=== PATIENT | female | born 1935 | race American Indian/Alaskan Native ===

== ENCOUNTER 2019-07-05 06:05 | Observation (INO) | payer MEDICARE ==
--- NOTE | 2019-07-05 06:46 | XRay Report ---
CHEST 1 VIEW INDICATION: Chest Pain. COMPARISON: None FINDINGS: Support devices: None. Heart: Within normal limits. Lungs/Pleura: No acute air space or interstitial disease. Additional findings: None. IMPRESSION: 1. No acute findings. Signer Name: Bimal Paz MD Signed: 07/05/2019 6:42 AM Workstation Name: [id number]
--- NOTE | 2019-07-05 07:21 | Emergency Department Report ---
ED Chest Pain HPI - General Chief Complaint: Chest Pain Stated Complaint: LEFT ARM AND CHEST PAIN Time Seen by Provider: 07/05/19 07:18 Source: patient Mode of arrival: Ambulatory Limitations: No Limitations - History of Present Illness Initial Comments: This is a very pleasant and largely functional 84-year-old female who has no known cardiac history. She was awake at 5 AM when she began to have an aching in her substernal region which radiated to her left arm and causes numbness. He states that she has had chest pain before but not recently. She has [place] some sort of cardiac [place] She has known known coronary artery disease. She denies significant sweating, nausea, shortness of breath. He states her chest aching has resolved but her arm feels diffusely aching. MD Complaint: chest pain -: hour(s) Onset: during rest Pain Location: substernal Pain Radiation: LUE Severity: moderate Quality: other (aching) Consistency: now resolved (chest pain resolved arm still aching mildly) Improves With: nothing Worsens With: nothing re: denies: nausea, vomting, diaphoresis, dyspnea, sense of impending doom Other Symptoms: denies: cough, fever, syncope Treatments Prior to Arrival: none Aspirin use within the Past 7 Days: (1) Yes - Related Data Home Medications Medication Instructions Recorded Confirmed Last Taken Aspirin [Baby Aspirin] 81 mg PO QDAY 04/29/13 07/05/19 07/04/19 Losartan [Cozaar] 100 mg PO QDAY 04/29/13 07/05/19 07/04/19 Multivit with Calcium,Iron,Min 1 each PO DAILY 07/05/19 07/05/19 07/04/19 [Multiple Vitamins For Women] Allergies Allergy/AdvReac Type Severity Reaction Status Date / Time iodine Allergy Hives Verified 04/29/13 16:05 Heart Score - HEART Score History: Highly suspicious EKG: Non-specific Age: > 65 Risk factors: > 3 risk factors or hx of atherosclerotic disease Troponin: < normal limit HEART Score: 7 - Critical Actions Critical Actions: >7 pts:50-65% risk of adverse cardiac event. Early invasive measures ED Review of Systems ROS: Stated complaint: LEFT ARM AND CHEST PAIN Other details as noted in HPI Constitutional: denies: chills, fever Eyes: denies: eye pain, eye discharge, vision change ENT: denies: ear pain, throat pain Respiratory: denies: cough, shortness of breath, wheezing Cardiovascular: chest pain. denies: palpitations Endocrine: no symptoms reported Gastrointestinal: denies: abdominal pain, nausea, diarrhea Genitourinary: denies: urgency, dysuria, discharge Musculoskeletal: denies: back pain, joint swelling, arthralgia Skin: denies: rash, lesions Neurological: denies: headache, weakness, paresthesias Psychiatric: denies: anxiety, depression Hematological/Lymphatic: denies: easy bleeding, easy bruising ED Past Medical Hx - Past Medical History Previous Medical History?: Yes Hx Hypertension: Yes Hx Congestive Heart Failure: Yes Hx Pulmonary Embolism: Yes (2010) Hx Arthritis: Yes Hx Kidney Stones: Yes Hx Dementia: Yes Additional medical history: MVP - Surgical History Past Surgical History?: No - Social History Smoking Status: Never Smoker Substance Use Type: None - Medications Home Medications: Home Medications Medication Instructions Recorded Confirmed Last Taken Type Aspirin [Baby Aspirin] 81 mg PO QDAY 04/29/13 07/05/19 07/04/19 History Losartan [Cozaar] 100 mg PO QDAY 04/29/13 07/05/19 07/04/19 History Multivit with Calcium,Iron,Min 1 each PO DAILY 07/05/19 07/05/19 07/04/19 History [Multiple Vitamins For Women] ED Physical Exam - General Limitations: No Limitations General appearance: alert, in no apparent distress - Head Head exam: Present: atraumatic, normocephalic - Eye Eye exam: Present: normal appearance. Absent: scleral icterus - ENT ENT exam: Present: mucous membranes moist - Neck Neck exam: Present: normal inspection. Absent: tenderness, meningismus - Respiratory Respiratory exam: Present: normal lung sounds bilaterally. Absent: respiratory distress - Cardiovascular Cardiovascular Exam: Present: regular rate, normal rhythm. Absent: systolic murmur, diastolic murmur, rubs, gallop - GI/Abdominal GI/Abdominal exam: Present: soft, normal bowel sounds. Absent: distended, tenderness, guarding, rebound, rigid - Extremities Exam Extremities exam: Present: normal inspection, full ROM, normal capillary refill. Absent: tenderness, pedal edema, joint swelling, calf tenderness, other - Back Exam Back exam: Present: normal inspection - Neurological Exam Neurological exam: Present: alert, oriented X3, CN II-XII intact. Absent: motor sensory deficit - Psychiatric Psychiatric exam: Present: normal affect, normal mood - Skin Skin exam: Present: warm, dry, intact, normal color. Absent: rash ED Course Vital Signs 07/05/19 07/05/19 07/05/19 06:17 07:00 08:00 Temperature 98.3 F Pulse Rate 82 62 62 Respiratory 18 18 13 Rate Blood Pressure 174/91 138/67 132/71 O2 Sat by Pulse 99 97 99 Oximetry 07/05/19 07/05/19 07/05/19 09:01 10:00 11:00 Temperature Pulse Rate 58 L 59 L 65 Respiratory 17 16 14 Rate Blood Pressure 118/61 126/70 113/66 O2 Sat by Pulse 96 99 99 Oximetry - Reevaluation(s) Reevaluation #1: I was informed if the patient was admitted that she had a contrast allergy. I ordered a nuclear medicine study. 07/05/19 15:31 ED Medical Decision Making - Lab Data Result diagrams: 07/05/19 07:45 07/05/19 07:45 Laboratory Results - last 24 hr 07/05/19 07/05/19 07/05/19 07:45 07:45 07:45 WBC 5.6 RBC 3.51 L Hgb 11.7 Hct 33.5 MCV 95 MCH 33 H MCHC 35 H RDW 13.1 L Plt Count 188 Lymph % (Auto) 25.7 [place] % (Auto) 7.5 H Eos % (Auto) 7.1 H Baso % (Auto) 0.7 Lymph # 1.4 [place] # 0.4 Eos # 0.4 Baso # 0.0 Seg Neutrophils % 59.0 Seg Neutrophils # 3.3 PT 13.3 INR 1.00 APTT 25.5 Sodium 142 Potassium 4.1 Chloride 104.7 Carbon Dioxide 22 Anion Gap 19 BUN 23 H Creatinine 0.7 Estimated GFR > 60 BUN/Creatinine Ratio 33 Glucose 107 H Calcium 9.6 Total Bilirubin 0.30 Direct Bilirubin < 0.2 AST 16 ALT 6 L Alkaline Phosphatase 55 Total Creatine Kinase 95 CK-MB (CK-2) 2.5 CK-MB (CK-2) Rel Index 2.6 Troponin T < 0.010 NT-Pro-B Natriuret Pep 130.2 Total Protein 6.6 Albumin 4.0 Albumin/Globulin Ratio 1.5 - EKG Data -: EKG Interpreted by Me EKG shows normal: sinus rhythm, axis, intervals, QRS complexes, ST-T waves Rate: normal - EKG Data Interpretation: no acute changes - Radiology Data Radiology results: report reviewed Critical care attestation.: If time is entered above; I have spent that time in minutes in the direct care of this critically ill patient, excluding procedure time. ED Disposition Clinical Impression: Elevated d-dimer Chest pain Qualifiers: Chest pain type: unspecified Qualified Code(s): R07.9 - Chest pain, unspecified Disposition: OP ADMIT IP TO THIS HOSP Is pt being admited?: Yes Does the pt Need Aspirin: Yes Condition: Stable Time of Disposition: 09:13
[2019-07-05 07:56] LABS: Basophils % (Auto) 0.7 % (0.0-1.8); Eosinophils # (Auto) 0.4 K/mm3 (0.0-0.4); Eosinophils % (Auto) 7.1 % (0.0-4.3); Hematocrit 33.5 % (30.3-42.9); Hemoglobin 11.7 gm/dl (10.1-14.3); Lymphocytes # (Auto) 1.4 K/mm3 (1.2-5.4); Lymphocytes % (Auto) 25.7 % (13.4-35.0); Mean Corpuscular HGB Conc 35 % (30-34); Mean Corpuscular Volume 95 fl (79-97); Monocytes # (Auto) 0.4 K/mm3 (0.0-0.8); Monocytes % (Auto) 7.5 % (0.0-7.3); Platelet Count 188 K/mm3 (140-440); Red Blood Count 3.51 M/mm3 (3.65-5.03); Red Cell Distribution Width 13.1 % (13.2-15.2)
[2019-07-05 08:07] LABS: Partial Thromboplastin Time 25.5 Sec. (24.2-36.6)
[2019-07-05 08:18] LABS: Creatine Kinase MB 2.5 ng/mL (0.0-4.0)
[2019-07-05 08:20] LABS: Alanine Aminotransferase 6 units/L (7-56); BUN/Creatinine Ratio 33; Blood Urea Nitrogen 23 mg/dL (7-17); Calcium 9.6 mg/dL (8.4-10.2); Hemolysis Index 4
[2019-07-05 08:22] LABS: Bilirubin,Direct < 0.2 mg/dL (0-0.2)
[2019-07-05] MEDS ORDERED: diphenhydrAMINE 50 MG/ML VIAL IV ONE (11:27)
[2019-07-05] MEDS ORDERED: HYDROCORTISONE SOD SUCC 100 MG/2 ML VIAL IV ONE (11:27)
[2019-07-05] MEDS ORDERED: ASPIRIN 325 MG TAB ONE (11:40)
[2019-07-05] MEDS: ASPIRIN 325 MG TAB PO SCH ×3 (11:45→21:19)
--- NOTE | 2019-07-05 15:41 | Nuclear Medicine Report ---
Nuclear medicine pulmonary VQ scan INDICATION: Fever onset chest pain with dyspnea with elevated d-dimer TECHNIQUE: A total of 24.0 mCi is interval 33 gas was inhaled and 5.1 mCi of technetium 99 MAA inject ed IV per protocol COMPARISON: Chest radiograph performed today FINDINGS: Normal wash-in and washout of xenon radiotracer. There is a matched defect identified invol ving the left lower lung. No mismatch perfusion abnormality identified. IMPRESSION: Low probability for PTE. Signer Name: Alex Rose MD Signed: 07/05/2019 3:37 PM Workstation Name: [id number]
[2019-07-05] MEDS ORDERED: ACETAMINOPHEN 325 MG TAB PO PRN (21:04)
[2019-07-05] MEDS ORDERED: HYDROmorphone 1 MG/1 ML INJ IV PRN (21:04)
[2019-07-05] MEDS ORDERED: oxyCODONE /ACETAMINOPHEN 5-325MG TAB PO PRN (21:04)
[2019-07-05] MEDS ORDERED: ONDANSETRON 4 MG/2 ML INJ IV PRN (21:04)
[2019-07-05] MEDS ORDERED: NON-FORMULARY EACH (Losartan [Cozaar] 100 MG) PO SCH (21:15)
[2019-07-05] MEDS: LOSARTAN 50 MG TAB PO SCH (21:22)
[2019-07-05] MEDS: FAMOTIDINE 20 MG TAB PO SCH (21:22)
[2019-07-06 06:10] LABS: Alanine Aminotransferase 6 units/L (7-56); Albumin 3.8 g/dL (3.9-5); BUN/Creatinine Ratio 31; Blood Urea Nitrogen 22 mg/dL (7-17); Calcium 9.4 mg/dL (8.4-10.2); Hemolysis Index 2
--- NOTE | 2019-07-06 06:51 | Event Note ---
Date: 07/05/19 See H/p in reports Chest pain r/o MS
--- NOTE | 2019-07-06 07:46 | History and Physical Report ---
History of Present Illness Date of examination: 07/05/19 Date of admission: 07/05/19 09:14 Chief complaint: Chest pain 1 day History of present illness: 84-year-old female who has no known cardiac history woke up at 5 AM when she began to have an aching in her substernal region which radiated to her left arm and causes numbness. She states that she has had chest pain before but not recently. She has had some sort of cardiac workup many [place]. She has no known coronary artery disease. She denies significant sweating, nausea, shortness of breath. She states her chest aching has resolved but her arm feels diffusely aching.No SOB Past Medical History Previous Medical History?: Yes Hypertension: Yes Congestive Heart Failure: Yes Pulmonary Embolism: Yes (2010) Arthritis: Yes Kidney Stones: Yes Dementia: Yes Additional medical history: MVP - Surgical History Past Surgical History?: No - Social History Smoking Status: Never Smoker Substance Use Type: None - Medications Home Medications: Home Medications Medication Instructions Recorded Confirmed Last Taken Type Aspirin [Baby Aspirin] 81 mg PO QDAY 04/29/13 07/05/19 07/04/19 History Losartan [Cozaar] 100 mg PO QDAY 04/29/13 07/05/19 07/04/19 History Multivit with Calcium,Iron,Min 1 each PO DAILY 07/05/19 07/05/19 07/04/19 History [Multiple Vitamins For Women] Review of Systems ROS: Stated complaint: LEFT ARM AND CHEST PAIN Other details as noted in HPI Constitutional: denies: chills, fever Eyes: denies: eye pain, eye discharge, vision change ENT: denies: ear pain, throat pain Respiratory: denies: cough, shortness of breath, wheezing Cardiovascular: chest pain. denies: palpitations Endocrine: no symptoms reported Gastrointestinal: denies: abdominal pain, nausea, diarrhea Genitourinary: denies: urgency, dysuria, discharge Musculoskeletal: denies: back pain, joint swelling, arthralgia Skin: denies: rash, lesions Neurological: denies: headache, weakness, paresthesias Psychiatric: denies: anxiety, depression Hematological/Lymphatic: denies: easy bleeding, easy bruising Medications and Allergies Allergies Allergy/AdvReac Type Severity Reaction Status Date / Time iodine Allergy Hives Verified 04/29/13 16:05 Home Medications Medication Instructions Recorded Confirmed Last Taken Type Aspirin [Baby Aspirin] 81 mg PO QDAY 04/29/13 07/05/19 07/04/19 History Losartan [Cozaar] 100 mg PO QDAY 04/29/13 07/05/19 07/04/19 History Multivit with Calcium,Iron,Min 1 each PO DAILY 07/05/19 07/05/19 07/04/19 History [Multiple Vitamins For Women] Active Meds: Active Medications Acetaminophen (Tylenol) 650 mg PO Q4H PRN PRN Reason: Pain MILD(1-3)/Fever >100.5/NORRIS Aspirin (Baby Aspirin) 81 mg PO QDAY [facility] Famotidine (Pepcid) 20 mg PO BID [facility] Last Admin: 07/05/19 21:22 Dose: 20 mg Documented by: Hydromorphone HCl (Dilaudid) 0.5 mg IV Q3H PRN PRN Reason: Pain , Severe (7-10) Losartan Potassium (Cozaar) 100 mg PO QDAY [facility] Last Admin: 07/05/19 21:22 Dose: 100 mg Documented by: Ondansetron HCl (Zofran) 4 mg IV Q8H PRN PRN Reason: Nausea And Vomiting Oxycodone/Acetaminophen (Percocet 5/325) 1 tab PO Q6H PRN PRN Reason: Pain, Moderate (4-6) Sodium Chloride (Sodium Chloride Flush Syringe 10 Ml) 10 ml IV BID [facility] Last Admin: 07/05/19 21:22 Dose: 10 ml Documented by: Sodium Chloride (Sodium Chloride Flush Syringe 10 Ml) 10 ml IV PRN PRN PRN Reason: LINE FLUSH Exam - Constitutional Vitals: Temp Pulse Resp BP Pulse Ox 98.0 F 63 18 104/55 98 07/06/19 01:05 07/06/19 01:05 07/06/19 01:05 07/06/19 01:05 07/06/19 01:05 General appearance: Present: no acute distress, well-nourished - EENT Eyes: Present: PERRL ENT: hearing intact, clear oral mucosa - Neck Neck: Present: supple, normal ROM - Respiratory Respiratory effort: normal Respiratory: bilateral: CTA - Cardiovascular Heart rate: 78 Rhythm: regular Heart Sounds: Present: S1 & S2. Absent: rub, click - Extremities Extremities: no ischemia, pulses intact, pulses symmetrical, No edema Peripheral Pulses: within normal limits - Abdominal General gastrointestinal: Present: soft, non-tender, non-distended, normal bowel sounds Female genitourinary: Present: normal - Rectal Rectal Exam: deferred - Integumentary Integumentary: Present: clear, warm, dry - Musculoskeletal Musculoskeletal: gait normal, strength equal bilaterally - Psychiatric Psychiatric: appropriate mood/affect, intact judgment & insight - Neurologic Neurologic: CNII-XII intact, moves all extremities SANDIE score - Sandie Score Age > 65: (1) Yes Aspirin use within the Past 7 Days: (1) Yes 3 or more CAD Risk Factors: (1) Yes 2 or more Angina events in past 24 hrs: (1) Yes Known CAD with more than 50% Stenosis: (0) No Elevated Cardiac Markers: (0) No ST Deviation Greater than 0.5mm: (0) No SANDIE Score: 4 Results - Labs CBC & Chem 7: 07/05/19 07:45 07/06/19 05:10 Labs: Laboratory Last Values WBC 5.6 K/mm3 (4.5-11.0) 07/05/19 07:45 RBC 3.51 M/mm3 (3.65-5.03) L 07/05/19 07:45 Hgb 11.7 gm/dl (10.1-14.3) 07/05/19 07:45 Hct 33.5 % (30.3-42.9) 07/05/19 07:45 MCV 95 fl (79-97) 07/05/19 07:45 MCH 33 pg (28-32) H 07/05/19 07:45 MCHC 35 % (30-34) H 07/05/19 07:45 RDW 13.1 % (13.2-15.2) L 07/05/19 07:45 Plt Count 188 K/mm3 (140-440) 07/05/19 07:45 Lymph % (Auto) 25.7 % (13.4-35.0) 07/05/19 07:45 [place] % (Auto) 7.5 % (0.0-7.3) H 07/05/19 07:45 Eos % (Auto) 7.1 % (0.0-4.3) H 07/05/19 07:45 Baso % (Auto) 0.7 % (0.0-1.8) 07/05/19 07:45 Lymph # 1.4 K/mm3 (1.2-5.4) 07/05/19 07:45 [place] # 0.4 K/mm3 (0.0-0.8) 07/05/19 07:45 Eos # 0.4 K/mm3 (0.0-0.4) 07/05/19 07:45 Baso # 0.0 K/mm3 (0.0-0.1) 07/05/19 07:45 Seg Neutrophils % 59.0 % (40.0-70.0) 07/05/19 07:45 Seg Neutrophils # 3.3 K/mm3 (1.8-7.7) 07/05/19 07:45 PT 13.3 Sec. (12.2-14.9) 07/05/19 07:45 INR 1.00 (0.87-1.13) 07/05/19 07:45 APTT 25.5 Sec. (24.2-36.6) 07/05/19 07:45 D-Dimer 1449.07 ng/mlDDU (0-234) H 07/05/19 09:25 Sodium 145 mmol/L (137-145) 07/06/19 05:10 Potassium 4.1 mmol/L (3.6-5.0) 07/06/19 05:10 Chloride 107.6 mmol/L (98-107) H 07/06/19 05:10 Carbon Dioxide 22 mmol/L (22-30) 07/06/19 05:10 Anion Gap 20 mmol/L 07/06/19 05:10 BUN 22 mg/dL (7-17) H 07/06/19 05:10 Creatinine 0.7 mg/dL (0.7-1.2) 07/06/19 05:10 Estimated GFR > 60 ml/min 07/06/19 05:10 BUN/Creatinine Ratio 31 % 07/06/19 05:10 Glucose 118 mg/dL (65-100) H 07/06/19 05:10 Hemoglobin A1c 5.6 % (4-6) 07/06/19 05:10 Calcium 9.4 mg/dL (8.4-10.2) 07/06/19 05:10 Total Bilirubin 0.30 mg/dL (0.1-1.2) 07/06/19 05:10 Direct Bilirubin < 0.2 mg/dL (0-0.2) 07/05/19 07:45 AST 15 units/L (5-40) 07/06/19 05:10 ALT 6 units/L (7-56) L 07/06/19 05:10 Alkaline Phosphatase 55 units/L (35-129) 07/06/19 05:10 Total Creatine Kinase 95 units/L (30-135) 07/05/19 07:45 CK-MB (CK-2) 2.5 ng/mL (0.0-4.0) 07/05/19 07:45 CK-MB (CK-2) Rel Index 2.6 (0-4) 07/05/19 07:45 Troponin T < 0.010 ng/mL (0.00-0.029) 07/06/19 05:10 NT-Pro-B Natriuret Pep 130.2 pg/mL (0-900) 07/05/19 07:45 Total Protein 6.5 g/dL (6.3-8.2) 07/06/19 05:10 Albumin 3.8 g/dL (3.9-5) L 07/06/19 05:10 Albumin/Globulin Ratio 1.4 % 07/06/19 05:10 Short CBC 07/05/19 Range/Units 07:45 WBC 5.6 (4.5-11.0) K/mm3 Hgb 11.7 (10.1-14.3) gm/dl Hct 33.5 (30.3-42.9) % Plt Count 188 (140-440) K/mm3 BMP 07/05/19 07/06/19 07:45 05:10 Sodium 142 145 Potassium 4.1 4.1 Chloride 104.7 107.6 H Carbon Dioxide 22 22 BUN 23 H 22 H Creatinine 0.7 0.7 Glucose 107 H 118 H Calcium 9.6 9.4 Cardiac Enzymes 07/05/19 07/05/19 07/05/19 Range/Units 07:45 09:25 18:52 Total Creatine Kinase 95 (30-135) units/L CK-MB (CK-2) 2.5 (0.0-4.0) ng/mL Troponin T < 0.010 < 0.010 < 0.010 (0.00-0.029) ng/mL 07/05/19 07/06/19 Range/Units 21:21 05:10 Total Creatine Kinase (30-135) units/L CK-MB (CK-2) (0.0-4.0) ng/mL Troponin T < 0.010 < 0.010 (0.00-0.029) ng/mL Liver Function 07/05/19 07/06/19 Range/Units 07:45 05:10 Total Bilirubin 0.30 0.30 (0.1-1.2) mg/dL Direct Bilirubin < 0.2 (0-0.2) mg/dL AST 16 15 (5-40) units/L ALT 6 L 6 L (7-56) units/L Alkaline Phosphatase 55 55 (35-129) units/L Albumin 4.0 3.8 L (3.9-5) g/dL - Imaging and Cardiology EKG: report reviewed Assessment and Plan Advance Directives: Yes (Full code) VTE prophylaxis?: Chemical Plan of care discussed with patient/family: Yes - Patient Problems (1) Chest pain Current Visit: Yes Status: Acute Qualifiers: Chest pain type: unspecified Qualified Code(s): R07.9 - Chest pain, unspecified Plan to address problem: Serial Troponins Lexiscan in AM (2) Elevated d-dimer Current Visit: Yes Status: Acute Plan to address problem: V/q scan negative (3) HTN (hypertension) Current Visit: Yes Status: Chronic Qualifiers: Hypertension type: essential hypertension Qualified Code(s): I10 - Essential (primary) hypertension Plan to address problem: Cont antihypertensives (4) DVT prophylaxis Current Visit: Yes Status: Acute Plan to address problem: On Heparin and GI prophylaxis
[2019-07-06] MEDS ORDERED: HEPARIN 5,000 UNIT/1 ML VIAL SUB-Q SCH (10:00)
[2019-07-06] MEDS ORDERED: ASPIRIN 81 MG TAB CHEW PO SCH (10:00)
[2019-07-06] MEDS: FAMOTIDINE 20 MG TAB PO SCH (10:04)
[2019-07-06] MEDS: LOSARTAN 50 MG TAB PO SCH (10:04)
--- NOTE | 2019-07-06 11:19 | Discharge Summary ---
Providers - Providers Date of Admission: 07/05/19 09:14 Attending physician: KENYON VARGAS MD Primary care physician: SHAKIRA CHAVARRIA Hospitalization Reason for admission: CHEST PAIN Condition: Stable Hospital course: 84-year-old female who has no known cardiac history woke up at 5 AM when she began to have an aching in her substernal region which radiated to her left arm and causes numbness. She states that she has had chest pain before but not recently. She has [place] some sort of cardiac [place] She has no known coronary artery disease. She denies significant sweating, nausea, shortness of breath. She states her chest aching has resolved but her arm feels diffusely aching.No SOB chest pain with arm ache, now resolving. No shortness of breath Elevated D.dimer Gold standard is CTA chest. DISCHARGE WITH NEGATIVE STRESS TEST FOLLOW WITH CARDIOLOGY NO STRENOUS ACTIVITY UNTILL SEEN BY CARDS OUTPATIENT Discussed with patient and daughter 1) Chest pain-Atypical Chest pain (2) Elevated [id number] v/q scan (3) HTN (hypertension) Disposition: DC- TO HOME OR SELFCARE Time spent for discharge: 35 MINS Core Measure Documentation - Palliative Care Palliative Care/ Comfort Measures: Not Applicable - Core Measures Any of the following diagnoses?: none Exam - Physical Exam Narrative exam: eneral appearance: Present: no acute distress, well-nourished - EENT Eyes: Present: PERRL ENT: hearing intact, clear oral mucosa - Neck Neck: Present: supple, normal ROM - Respiratory Respiratory effort: normal Respiratory: bilateral: CTA - Cardiovascular Heart rate: 78 Rhythm: regular Heart Sounds: Present: S1 & S2. Absent: rub, click - Extremities Extremities: no ischemia, pulses intact, pulses symmetrical, No edema Peripheral Pulses: within normal limits - Abdominal General gastrointestinal: Present: soft, non-tender, non-distended, normal bowel sounds Female genitourinary: Present: normal - Rectal Rectal Exam: deferred - Integumentary Integumentary: Present: clear, warm, dry - Musculoskeletal Musculoskeletal: gait normal, strength equal bilaterally - Psychiatric Psychiatric: appropriate mood/affect, intact judgment & insight - Neurologic Neurologic: CNII-XII intact, moves all extremities - Constitutional Vitals: Temp Pulse Resp BP Pulse Ox 98.6 F 55 L 15 146/78 98 07/06/19 08:45 07/06/19 10:00 07/06/19 08:45 07/06/19 08:40 07/06/19 08:45 Plan Activity: advance as tolerated, fall precautions Diet: low fat Special Instructions: record daily weights, record daily BP diary Follow up with: SHAKIRA CHAVARRIA MD [Primary Care Provider] - 7 Days BEBA WATKINS MD [Staff Physician] - 3 Days Prescriptions: AtorvaSTATin [Lipitor] 20 mg PO QHS #30 tab
[2019-07-06 13:33] VITALS: BP 117/49
== END 2019-07-06 14:36 | disposition home or self-care (01) ==
LOC: ED 06:05 → 4A 09:14
PROVIDERS: ADMIT Internal Medicine; ATTEND Internal Medicine
DX: R07.89 Other chest pain (principal); R74.8 Abnormal levels of other serum enzymes; I11.0 Hypertensive heart disease with heart failure; I50.9 Heart failure, unspecified; M19.90 Unspecified osteoarthritis, unspecified site; F02.80 Dementia in other diseases classified elsewhere, unspecified severity, without behavioral disturbance, psychotic disturbance, mood disturbance, and anxiety; Z87.442 Personal history of urinary calculi; Z86.711 Personal history of pulmonary embolism; Z79.899 Other long term (current) drug therapy
CPT/HCPCS: 36415; 71045; 78582; 80048; 80053; 80076; 82550; 82553; 83036; 83880; 84484; 85025; 85379; 85610; 85730; 93005; 93010; 96372; 96374; 96375; 99284; A9540; A9558; G0378; J1200; J1644; J1720